=== PATIENT | male | born 1985 | race Caucasian/White ===

== ENCOUNTER → 2018-02-17 | Outpatient (CLI) | payer OTHER ==
[2018-02-17 13:17] LABS: PARTIAL THROMBOPLASTIN TIME 25 SEC (24-38)
[2018-02-17 13:46] LABS: C-REACTIVE PROTEIN 1.3 mg/L (0-3.3)
[2018-02-19 12:12] LABS: LUPUS ANTICOAGULANT SEE SEPARATE REPORT
[2018-02-19 12:13] LABS: CARDIOLIPIN ANTIBODIES SEE SEPARATE REPORT
[2018-02-19 12:13] LABS: ANTITHROMBIN III SEE SEPARATE REPORT; PROTEIN C ACTIVITY SEE SEPARATE REPORT
[2018-02-19 12:14] LABS: PROTEIN S ACTIVITY SEE SEPARATE REPORT
== END | disposition home or self-care (01) ==
LOC: LAB 12:11
DX: I63.9 Cerebral infarction, unspecified (principal); E11.9 Type 2 diabetes mellitus without complications
CPT/HCPCS: 85610; 85730; 86140